=== PATIENT | female | born 1995 | race Caucasian/White ===

== ENCOUNTER 2018-04-12 05:15 | Emergency (ER) | payer OTHER ==
[2018-04-12 05:45] LABS: BILIRUBIN,URINE NEGATIVE (NEGATIVE); GLUCOSE, URINE (UA) NEGATIVE (NEGATIVE); KETONES,URINE (UA) NEGATIVE (NEGATIVE); LEUKOCYTE ESTERASE, URINE NEGATIVE (NEGATIVE); NITRITE,URINE NEGATIVE (NEGATIVE); OCCULT BLOOD,URINE NEGATIVE (NEGATIVE); PROTEIN,URINE NEGATIVE (NEGATIVE); UROBILINOGEN,URINE 0.2 (NORMAL) E.U./dL (NORMAL)
[2018-04-12 05:55] LABS: CLARITY,URINE CLEAR (CLEAR); HCG UR QUAL NEGATIVE
[2018-04-12 05:56] LABS: BASOPHILS % (AUTO) 0.6 %; EOSINOPHILS % (AUTO) 0.7 %; HGB - HEMOGLOBIN 13.6 g/dL (12.0-16.0); LYMPHOCYTES # (AUTO) 2.6 10^3/uL (1.5-3.5); LYMPHOCYTES % (AUTO) 33.7 %; MEAN CORPUSCULAR HEMOGLOBIN 31.7 pg (27.0-31.0); MEAN CORPUSCULAR HGB CONC 33.7 g/dL (32.0-36.0); MEAN CORPUSCULAR VOLUME 94.1 fL (81.0-99.0); MEAN PLATELET VOLUME 8.6 fL (7.9-10.8); MONOCYTES # (AUTO) 0.7 10^3/uL (0.0-1.0); MONOCYTES % (AUTO) 8.6 %; NEUTROPHILS # (AUTO) 4.3 10^3/uL (1.5-6.6); NEUTROPHILS % (AUTO) 56.4 %; PLT - PLATELET COUNT 252 10^3/uL (130-450); RED BLOOD COUNT 4.27 10^6/uL (4.20-5.40); WHITE BLOOD COUNT 7.6 x10^3/uL (4.8-10.8)
--- NOTE | 2018-04-12 06:03 | ED Physician Documentation ---
PD HPI GI BLEED - Stated complaint Stated Complaint: BLOOD IN STOOL - Chief complaint Chief Complaint: Abd Pain - History obtained from History obtained from: Patient - History of Present Illness Timing - onset: How many weeks ago (1) Timing - details: Gradual onset, Still present Associated symptoms: BRBPR Similar symptoms before: No diagnosis, Has not had sx before Recently seen: Not recently seen - Additional information Additional information: patient is a 23 year old female with no significant past medical history who is presenting to the emergency department with bright red blood with her stools. Patient states that it has been going on for the past week but this morning when she had a bowel movement the blood was dripping out. Patient called her friend who is dispatcher who stated she should come in for evaluation. Review of Systems Ten Systems: 10 systems reviewed and negative GI: reports: Bloody / black stool PD PAST MEDICAL HISTORY - Present Medications Home Medications: Ambulatory Orders Medication Instructions Recorded Confirmed Paroxetine HCl [Paxil] 1 tab PO DAILY 04/12/18 04/12/18 - Allergies Allergies/Adverse Reactions: Allergies Allergy/AdvReac Type Severity Reaction Status Date / Time No Known Drug Allergies Allergy Verified 04/12/18 05:23 PD ED PE NORMAL - Vitals Vital signs reviewed: Yes - General General: Alert and oriented X 3, No acute distress - HEENT HEENT: Atraumatic - Cardiac Cardiac: RRR - Respiratory Respiratory: No respiratory distress - Abdomen Abdomen: Soft, Non tender - Derm Derm: Normal color, Warm and dry - Extremities Extremities: No deformity - Neuro Neuro: Alert and oriented X 3, No motor deficit, Normal speech Eye Opening: Spontaneous PD ED PE EXPANDED - Rectal Rectal: Hemorrhoid, Fissure, Mirror Department Supervisor present Results - Vitals Vitals: Vital Signs - 24 hr 04/12/18 05:21 Temperature 36.2 C L Heart Rate 65 Respiratory 18 Rate Blood Pressure 124/78 O2 Saturation 100 Oxygen O2 Source Room air - Labs Labs: Laboratory Tests 04/12/18 04/12/18 04/12/18 05:35 05:45 05:45 WBC 7.6 RBC 4.27 Hgb 13.6 Hct 40.2 MCV 94.1 MCH 31.7 H MCHC 33.7 RDW 13.0 Plt Count 252 MPV 8.6 Neut # (Auto) 4.3 Lymph # (Auto) 2.6 [place] # (Auto) 0.7 Eos # (Auto) 0.0 Baso # (Auto) 0.0 Absolute Nucleated RBC 0.01 Nucleated RBC % 0.1 PT 13.4 H INR 1.2 APTT 28.2 Sodium Potassium Chloride Carbon Dioxide Anion Gap BUN Creatinine Estimated GFR (MDRD) Glucose Calcium Total Bilirubin AST ALT Alkaline Phosphatase Total Protein Albumin Globulin Albumin/Globulin Ratio Lipase Urine Color YELLOW Urine Clarity CLEAR Urine pH 7.0 Ur Specific [place] <=1.005 Urine Protein NEGATIVE Urine Glucose (UA) NEGATIVE Urine Ketones NEGATIVE Urine Occult Blood NEGATIVE Urine Nitrite NEGATIVE Urine Bilirubin NEGATIVE Urine Urobilinogen 0.2 (NORMAL) Ur Leukocyte Esterase NEGATIVE Ur Microscopic Review NOT INDICATED Urine Culture Comments NOT INDICATED Urine HCG, Qual NEGATIVE 04/12/18 05:45 WBC RBC Hgb Hct MCV MCH MCHC RDW Plt Count MPV Neut # (Auto) Lymph # (Auto) [place] # (Auto) Eos # (Auto) Baso # (Auto) Absolute Nucleated RBC Nucleated RBC % PT INR APTT Sodium 137 Potassium 3.4 L Chloride 103 Carbon Dioxide 26 Anion Gap 8.0 BUN 12 Creatinine 0.8 Estimated GFR (MDRD) 87 L Glucose 77 Calcium 9.5 Total Bilirubin 0.7 AST 25 ALT 20 Alkaline Phosphatase 71 Total Protein 7.5 Albumin 4.5 Globulin 3.0 Albumin/Globulin Ratio 1.5 Lipase 45 Urine Color Urine Clarity Urine pH Ur Specific [place] Urine Protein Urine Glucose (UA) Urine Ketones Urine Occult Blood Urine Nitrite Urine Bilirubin Urine Urobilinogen Ur Leukocyte Esterase Ur Microscopic Review Urine Culture Comments Urine HCG, Qual PD MEDICAL DECISION MAKING - ED course Complexity details: reviewed old records, reviewed results, re-evaluated patient , considered differential, d/w patient ED course: Patient was seen and examined at bedside. exam was consistent with hemorrhoid with a fissure. Patient reported bleeding with brushing her teeth as well so basic labs were drawn and were within normal limits. patient was given discharge and follow up instructions and required no further work up at this time. - Sepsis Event Vital Signs: Vital Signs - 24 hr 04/12/18 05:21 Temperature 36.2 C L Heart Rate 65 Respiratory 18 Rate Blood Pressure 124/78 O2 Saturation 100 Oxygen O2 Source Room air Departure - Departure Disposition: 01 Home, Self Care Clinical Impression: Anal fissure Condition: Good Instructions: Hemorrhoids Dx, Sitz Bath Follow-Up: primary,care provider [Other] Comments: Your diagnostics today were within normal limits. Your symptoms are being caused by a fissure or cut in your rectum. it is treated like a hemorrhoid with sitz baths, stools softeners and not straining on while going to the bathroom. You can also try preparation H or other hemorrhoid cream. You can expect to have blood with your stooling until it heals. You should follow up with your doctor if your symptoms persist. You may return to the emergency department at any time for new, worsening or uncontrollable symptoms.
[2018-04-12 06:04] LABS: INR 1.2 (0.8-1.2); PT - PROTHROMBIN TIME 13.4 secs (9.9-12.6)
[2018-04-12 06:08] LABS: ALBUMIN 4.5 g/dL (3.2-5.5); ALBUMIN/GLOBULIN RATIO 1.5 (1.0-2.2); BILIRUBIN,TOTAL 0.7 mg/dL (0.2-1.0); CALCIUM 9.5 mg/dL (8.5-10.3); CREATININE 0.8 mg/dL (0.4-1.0); TOTAL PROTEIN 7.5 g/dL (6.7-8.2)
[2018-04-12 06:36] VITALS: BP 126/77
== END 2018-04-12 06:30 | disposition home or self-care (01) ==
LOC: ED 05:15
DX: K60.2 Anal fissure, unspecified (principal)
CPT/HCPCS: 36415; 80053; 81001; 81003; 81025; 83690; 85025; 85610; 85730; 87086; 99283

== ENCOUNTER 2019-03-05 23:46 | Emergency (ER) | payer OTHER ==
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
[2019-03-06 00:12] LABS: BASOPHILS # (AUTO) 0.1 10^3/uL (0.0-0.1); BASOPHILS % (AUTO) 0.5 %; EOSINOPHILS # (AUTO) 0.1 10^3/uL (0.0-0.7); EOSINOPHILS % (AUTO) 0.6 %; HGB - HEMOGLOBIN 13.1 g/dL (12.0-16.0); LYMPHOCYTES # (AUTO) 2.1 10^3/uL (1.5-3.5); LYMPHOCYTES % (AUTO) 21.6 %; MEAN CORPUSCULAR HEMOGLOBIN 31.8 pg (27.0-31.0); MEAN CORPUSCULAR HGB CONC 33.1 g/dL (32.0-36.0); MEAN CORPUSCULAR VOLUME 96.1 fL (81.0-99.0); MEAN PLATELET VOLUME 10.2 fL (7.9-10.8); MONOCYTES # (AUTO) 0.8 10^3/uL (0.0-1.0); NEUTROPHILS # (AUTO) 6.7 10^3/uL (1.5-6.6); NEUTROPHILS % (AUTO) 68.9 %; PLT - PLATELET COUNT 250 10^3/uL (130-450); RED BLOOD COUNT 4.12 10^6/uL (4.20-5.40); RED CELL DISTRIBUTION WIDTH 12.1 % (12.0-15.0); WHITE BLOOD COUNT 9.8 x10^3/uL (4.8-10.8)
[2019-03-06 00:15] LABS: MUDS CUTOFF CONCENTRATIONS CUTOFF CONC BELOW:
[2019-03-06 00:18] LABS: BILIRUBIN,URINE NEGATIVE (NEGATIVE); GLUCOSE, URINE (UA) NEGATIVE (NEGATIVE); KETONES,URINE (UA) NEGATIVE (NEGATIVE); LEUKOCYTE ESTERASE, URINE NEGATIVE (NEGATIVE); NITRITE,URINE NEGATIVE (NEGATIVE); OCCULT BLOOD,URINE NEGATIVE (NEGATIVE); PROTEIN,URINE NEGATIVE (NEGATIVE); UROBILINOGEN,URINE 0.2 (NORMAL) E.U./dL (NORMAL)
[2019-03-06 00:19] LABS: CLARITY,URINE CLEAR (CLEAR); HCG UR QUAL NEGATIVE
[2019-03-06 00:21] LABS: ACETAMINOPHEN < 10 ug/mL (10-30); ALBUMIN 4.4 g/dL (3.2-5.5); ALBUMIN/GLOBULIN RATIO 1.3 (1.0-2.2); ALKALINE PHOSPHATASE 62 IU/L (42-121); ALT ALANINE AMINOTRANSFERASE 24 IU/L (10-60); AST ASPARTATE AMINOTRANSFERASE 29 IU/L (10-42); BILIRUBIN,TOTAL < 0.2 mg/dL (0.2-1.0); BUN - BLOOD UREA NITROGEN 13 mg/dL (6-20); CALCIUM 9.6 mg/dL (8.5-10.3); CARBON DIOXIDE - CO2 24 mmol/L (21-32); CHLORIDE 107 mmol/L (101-111); CREATININE 0.8 mg/dL (0.4-1.0); GFR - MDRD 87 (>89); GLUCOSE 79 mg/dL (70-100); LIPASE 41 U/L (22-51); SALICYLATE < 6.0 mg/dL; SODIUM 143 mmol/L (135-145); TOTAL PROTEIN 7.9 g/dL (6.7-8.2)
[2019-03-06 00:27] LABS: AMPHETAMINE SCREEN,URINE NEGATIVE (NEGATIVE); BENZODIAZEPINES SCREEN, URINE NEGATIVE (NEGATIVE); COCAINE SCREEN URINE NEGATIVE (NEGATIVE); METHADONE SCREEN, URINE NEGATIVE (NEGATIVE); METHAMPHETAMINES SCREEN, URINE NEGATIVE (NEGATIVE); OPIATE SCREEN, URINE NEGATIVE (NEGATIVE); OXYCODONE SCREEN, URINE NEGATIVE (NEGATIVE); PROPOXYPHENE SCREEN, URINE NEGATIVE (NEGATIVE); TRICYCLIC ANTIDEPRESSANT,URINE NEGATIVE (NEGATIVE)
[2019-03-06] MEDS ORDERED: ACETAMINOPHEN 325 MG TABLET PO STA (00:44)
[2019-03-06] MEDS ORDERED: IBUPROFEN 600 MG TABLET PO STA (09:49)
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
[2019-03-06 15:18] VITALS: BP 103/59
== END 2019-03-06 15:32 ==
LOC: ED 23:46
DX: F32.9 Major depressive disorder, single episode, unspecified (principal); R45.851 Suicidal ideations; S00.83XA Contusion of other part of head, initial encounter; Y04.2XXA Assault by strike against or bumped into by another person, initial encounter
CPT/HCPCS: 36415; 80320; 80329; 81003; 81025; 83690; 99283; 99285; A9270; 80053; 80306; 80307; 81001; 84443; 85025; 87086